=== PATIENT | female | born 2000 | race Caucasian/White ===

== ENCOUNTER 2024-01-15 02:03 | Emergency (ER) | payer SELFPAY ==
[~2024-01-15] VITALS: Ht 165.1 cm; Wt 83.1 kg
[2024-01-15 02:10] VITALS: BP 147/75; TEMP 98.3; O2SAT 98
== END 2024-01-15 04:00 | disposition left against medical advice (07) ==
LOC: M ED 02:03
DX: Z53.21 Procedure and treatment not carried out due to patient leaving prior to being seen by health care provider (principal)

== ENCOUNTER 2024-01-15 14:51 | Emergency (ER) | payer MEDICAID, OTHER, SELFPAY ==
[~2024-01-15] VITALS: Ht 165.1 cm; Wt 82.6 kg
[2024-01-15 14:52] VITALS: BP 119/71; TEMP 97.2; O2SAT 98
== END 2024-01-15 15:52 | disposition home or self-care (01) ==
LOC: M ED 14:51
DX: Z32.01 Encounter for pregnancy test, result positive (principal)

== ENCOUNTER → 2024-01-17 | Outpatient (CLI) | payer OTHER | LOC: M LAB 08:53 | PROVIDERS: ATTEND Physician Assistant | DX: Z32.01 Encounter for pregnancy test, result positive (principal) ==

== ENCOUNTER 2024-07-06 22:01 | Emergency (ER) | payer OTHER ==
[~2024-07-06] VITALS: Ht 165.1 cm; Wt 74.0 kg
[2024-07-06 22:24] LABS: BASO % 0.2 % (0.0-1.0); EOS % 0.3 % (0.0-3.0); HEMATOCRIT 38.1 % (36.0-47.0); HEMOGLOBIN 13.2 g/dl (12.0-15.5); LYMPH # 2.2 10^3/uL (1.5-5.0); LYMPH % 23.6 % (24.0-44.0); MEAN CORPUSCULAR HEMOGLOBIN 31.8 pg (27.0-33.0); MEAN CORPUSCULAR HGB CONC 34.6 g/dl (32.0-36.5); MEAN CORPUSCULAR VOLUME 91.8 fl (80.0-96.0); MONO # 0.5 10^3/uL (0.0-0.8); MONO % 5.2 % (2.0-8.0); NEUTROPHILS # 6.5 10^3/uL (1.5-8.5); NEUTROPHILS % 70.2 % (36.0-66.0); PLATELET COUNT, AUTOMATED 245 10^3/uL (150-450); RED BLOOD COUNT 4.15 10^6/uL (4.00-5.40); WHITE BLOOD COUNT 9.2 10^3/uL (4.0-10.0)
[2024-07-06] MEDS ORDERED: PRENTAB45 PO (23:07)
[2024-07-06] MEDS ORDERED: CEFD1CAP9 PO (23:07)
[2024-07-06] MEDS: CEFDINIR 300 MG CAP (OMNICEF) PO ONE (23:20)
[2024-07-06] MEDS: ACETAMINOPHEN 325 MG TAB PO ONE (23:21)
[2024-07-06 23:25] VITALS: BP 114/76; TEMP 98.8; O2SAT 98
[2024-07-06 23:26] LABS: BLOOD UREA NITROGEN 9 MG/DL (9-23); CALCIUM LEVEL 9.2 MG/DL (8.5-10.1); CARBON DIOXIDE LEVEL 24 MMOL/L (20-31); CHLORIDE LEVEL 104 MMOL/L (98-107); CREATININE FOR GFR 0.65 MG/DL (0.55-1.30); GLOMERULAR FILTRATION RATE > 60.0 (>60); GLUCOSE, FASTING 75 MG/DL (60-100); POTASSIUM SERUM 3.7 MMOL/L (3.5-5.1); SODIUM LEVEL 136 MMOL/L (136-145)
== END 2024-07-06 23:33 | disposition home or self-care (01) ==
LOC: EDBD 22:01 → M ED 22:01
DX: O23.42 Unspecified infection of urinary tract in pregnancy, second trimester (principal); Z3A.19 19 weeks gestation of pregnancy